=== PATIENT | male | born 1965 | race Caucasian/White ===

== ENCOUNTER 2016-11-18 08:54 | Day surgery (SDC) | payer BC ==
[2016-11-18] MEDS ORDERED: Lactated Ringers 1,000 ML IV SCH (09:45)
[2016-11-18] MEDS ORDERED: Propofol 200 MG/20 ML SDV IV ONE (09:45)
--- NOTE | 2016-11-18 10:18 | PCM.OPNOTE ---
- General Post-Op/Procedure Note Date of Surgery/Procedure: 11/18/16 Operative Procedure(s): c scope with bx Findings: cecal polyp single sigmoid diverticulum Pre Op Diagnosis: screening Post-Op Diagnosis: cecal polyp. single sigmoid diverticulum Anesthesia Technique: MAC Primary Surgeon: Geovani Mir Anesthesia Provider: Sagrario Daugherty Pathology: cecal polyp Complications: None Condition: Good Free Text/Narrative:: see dictation
--- NOTE | 2016-11-18 10:32 | OR ---
DATE OF OPERATION: 11/18/2016 SURGEON: Geovani Mir MD PROCEDURE PERFORMED: Colonoscopy with cold forceps biopsy. PREOPERATIVE DIAGNOSIS: Need for screening C-scope. POSTOPERATIVE DIAGNOSES: Cecal polyp and single diverticulum of the sigmoid colon. INDICATIONS FOR PROCEDURE: This is a 51-year-old white male who presents for screening colonoscopy. He was offered and accepted same. DESCRIPTION OF OPERATION: After an excellent IV sedation was administered, digital rectal exam was performed. No marked abnormality was noted. The flexible colonoscope was inserted and advanced to the cecum without difficulty. The prep was excellent. The following findings were noted. Ascending colon, at the cecum, a small polypoid lesion, biopsied with cold biopsy forceps and sent for permanent. Transverse colon, unremarkable. Descending colon, unremarkable. Sigmoid, a single diverticulum. Rectum and anus, unremarkable. The colon was deflated as the scope was removed. The patient tolerated the procedure well and was taken to recovery room in good condition. /[id number] SANDRA/WILLA
[2016-11-18 11:18] VITALS: BP 115/74
== END 2016-11-18 11:00 | disposition home or self-care (01) ==
LOC: FB.SDS 08:54
PROVIDERS: ATTEND Surgery
DX: Z12.11 Encounter for screening for malignant neoplasm of colon (principal); K63.89 Other specified diseases of intestine; K57.30 Diverticulosis of large intestine without perforation or abscess without bleeding; K58.9 Irritable bowel syndrome, unspecified; F34.1 Dysthymic disorder; Z90.49 Acquired absence of other specified parts of digestive tract; Z87.11 Personal history of peptic ulcer disease; Z79.899 Other long term (current) drug therapy; Z87.891 Personal history of nicotine dependence
CPT/HCPCS: 45380; 88305; J2704; J7120